=== PATIENT | male | born 1945 | race Caucasian/White ===

== ENCOUNTER 2018-06-04 15:27 | Emergency (ER) | payer MEDICARE, OTHER ==
[~2018-06-04] VITALS: Ht 172.7 cm; Wt 87.0 kg
[2018-06-04 15:30] VITALS: BP 130/77
[2018-06-04] MEDS ORDERED: SULF1TAB49 PO (16:48)
== END 2018-06-04 18:04 | disposition home or self-care (01) ==
LOC: ER 15:27
DX: L02.414 Cutaneous abscess of left upper limb (principal)
CPT/HCPCS: 10060; 99283

== ENCOUNTER 2018-07-01 16:42 | Emergency (ER) | payer MEDICARE, OTHER ==
[~2018-07-01] VITALS: Ht 172.7 cm; Wt 88.0 kg
[2018-07-01 16:45] VITALS: BP 147/92
[2018-07-01] MEDS ORDERED: BUPIVAcaine/PF 2.5 mg/ml (0.25%) 30ml vial IJ ONE (17:05)
[2018-07-01] MEDS ORDERED: TETanus/Pertussis (Acell)/Diphther VAC/PF (Tdap-Adult) 0.5ml syringe IM ONE (17:05)
[2018-07-01] MEDS ORDERED: BUPIVAcaine/PF 2.5mg/ml (0.25%) 10ml vial IJ ONE (17:10)
[2018-07-01] MEDS ORDERED: CEPH500C5 PO (17:36)
== END 2018-07-01 18:37 | disposition home or self-care (01) ==
LOC: ER 16:42
DX: S61.512A Laceration without foreign body of left wrist, initial encounter (principal); Z79.2 Long term (current) use of antibiotics; W26.8XXA Contact with other sharp object(s), not elsewhere classified, initial encounter; Y93.89 Activity, other specified; Y92.89 Other specified places as the place of occurrence of the external cause; Y99.8 Other external cause status
CPT/HCPCS: 12032; 99284; J3490

== ENCOUNTER 2019-10-10 13:10 | Emergency (ER) | payer MEDICARE, OTHER ==
[~2019-10-10] VITALS: Ht 172.7 cm; Wt 86.4 kg
[2019-10-10 17:37] VITALS: BP 137/80
[2019-10-10] MEDS ORDERED: ibuprofen 200mg tablet PO ONE (17:40)
== END 2019-10-10 18:20 | disposition home or self-care (01) ==
LOC: ER 13:11
DX: S80.01XA Contusion of right knee, initial encounter (principal); W23.0XXA Caught, crushed, jammed, or pinched between moving objects, initial encounter; Y93.89 Activity, other specified; Y92.89 Other specified places as the place of occurrence of the external cause; Y99.9 Unspecified external cause status
CPT/HCPCS: 29505; 73564; 73700; 99284

== ENCOUNTER 2021-11-17 10:08 | Emergency (ER) | payer OTHER, MEDICARE ==
[~2021-11-17] VITALS: Ht 172.7 cm; Wt 93.6 kg
[2021-11-17 10:12] VITALS: BP 144/93
[2021-11-17] MEDS ORDERED: ceFAZolin 1000mg inj IV ONE (10:55)
[2021-11-17] MEDS ORDERED: gentamicin in saline, iso-osm 80 MG/50 ML premix IV ONE (10:55)
[2021-11-17] MEDS ORDERED: LIDOcaine 1% W/epiNEPHrine 1:200,000 10ml vial IJ ONE (11:00)
[2021-11-17] MEDS ORDERED: bacitracin 15gm ointment TP ONE (11:00)
[2021-11-17] MEDS ORDERED: LIDOcaine 1% w/EPI 1:100,000 30ml vial (MDV) IJ ONE (11:00)
[2021-11-17] MEDS ORDERED: gentamicin inj 80 MG in normal saline 100ml IV soln 98 ML IV ONE (11:00)
[2021-11-17] MEDS ORDERED: ceFAZolin 2gm in dextrose, iso 100 ML IV ONE (11:00)
[2021-11-17] MEDS ORDERED: ceFAZolin 2gm in dextrose, iso 50 ML IV ONE (11:10)
[2021-11-17] MEDS ORDERED: gentamicin inj 80 MG in normal saline 100ml IV soln 100 ML IV ONE (11:11)
[2021-11-17] MEDS ORDERED: HYDR-3972 PO (12:48)
[2021-11-17] MEDS ORDERED: CEPH-585 PO (12:48)
[2021-11-17] MEDS ORDERED: ONDA4TAB12 PO (12:48)
--- NOTE | 2021-11-17 13:29 | NUR ---
relieving RN for lunch, certified surgical technician at bedside to dress finger on left hand and splint
== END 2021-11-17 13:30 | disposition home or self-care (01) ==
LOC: ER 10:09
DX: S62.635B Displaced fracture of distal phalanx of left ring finger, initial encounter for open fracture (principal); Z79.2 Long term (current) use of antibiotics; Z79.899 Other long term (current) drug therapy; W45.8XXA Other foreign body or object entering through skin, initial encounter; Y93.89 Activity, other specified; Y92.89 Other specified places as the place of occurrence of the external cause; Y99.8 Other external cause status
CPT/HCPCS: 13131; 73140; 96365; 96368; 99285; J0690; J1580; J3490; 96366; 99284

== ENCOUNTER 2021-11-19 08:58 | Emergency (ER) | payer OTHER, MEDICARE ==
[~2021-11-19] VITALS: Ht 172.7 cm; Wt 93.0 kg
[~2021-11-19 08:58] MED LIST: CEPH-585 PO; HYDR-3972 PO; ONDA4TAB12 PO
[2021-11-19 09:36] VITALS: BP 139/82
== END 2021-11-19 09:48 | disposition home or self-care (01) ==
LOC: ER 08:59
DX: S62.605D Fracture of unspecified phalanx of left ring finger, subsequent encounter for fracture with routine healing (principal); Z79.2 Long term (current) use of antibiotics; Z79.899 Other long term (current) drug therapy; X58.XXXD Exposure to other specified factors, subsequent encounter
CPT/HCPCS: 99281

== ENCOUNTER 2021-12-03 15:38 | Emergency (ER) | payer OTHER, MEDICARE ==
[~2021-12-03] VITALS: Ht 172.7 cm; Wt 96.2 kg
[2021-12-03 15:48] VITALS: BP 141/84
--- NOTE | 2021-12-03 16:10 | NUR ---
Finger, (3rd on L hand) soaking in betadine per Leonor, [employer].
--- NOTE | 2021-12-03 17:30 | NUR ---
Wound cleaned by SONIDO Galvez and dressed with tube gauze and splinted with a frog splint.
--- NOTE | 2021-12-03 17:44 | NUR ---
Given and understands d/c instructions. Ambulatory with a steady gait.
== END 2021-12-03 17:44 | disposition home or self-care (01) ==
LOC: ER 15:39
DX: S67.195A Crushing injury of left ring finger, initial encounter (principal); Z79.2 Long term (current) use of antibiotics; Z79.899 Other long term (current) drug therapy; X58.XXXA Exposure to other specified factors, initial encounter; Y93.89 Activity, other specified; Y92.89 Other specified places as the place of occurrence of the external cause; Y99.8 Other external cause status
CPT/HCPCS: 29130; 99281; 99283

== ENCOUNTER 2024-11-25 15:51 | Emergency (ER) | payer OTHER, MEDICARE ==
[~2024-11-25] VITALS: Ht 172.7 cm; Wt 97.8 kg
[~2024-11-25 15:51] MED LIST changes: -CEPH-585 PO; -HYDR-3972 PO; +ONDA-243 PO; -ONDA4TAB12 PO
[2024-11-25 16:40] LABS: BASOPHILS % (AUTO) 0.7 % (0-1); EOSINOPHILS # (AUTO) 0.1 X10'3 (0-0.9); HEMOGLOBIN 14.9 g/dl (14.0-17.9); LYMPHOCYTES % (AUTO) 16.7 % (21-51); MEAN CORPUSCULAR HEMOGLOBIN 29.6 PG (27.0-31.0); MEAN CORPUSCULAR HGB CONC 33.9 g/dL (33.0-36.5); MEAN CORPUSCULAR VOLUME 87.3 FL (78-98); MEAN PLATELET VOLUME 7.6 FL (7.4-10.4); MONOCYTES # (AUTO) 0.5 X10'3 (0-0.9); MONOCYTES % (AUTO) 8.6 % (2-12); NEUTROPHILS # (AUTO) 4.4 X10'3 (1.8-7.7); PLATELET COUNT 233 X10'3 (140-440); RED BLOOD COUNT 5.04 X10'6 (4.70-6.10); RED CELL DISTRIBUTION WIDTH 13.8 % (11.5-14.5)
[2024-11-25 16:53] LABS: ALANINE AMINOTRANSFERASE 29 U/L (12-78); ALBUMIN 4.2 G/DL (3.4-5.0); ALBUMIN/GLOBULIN RATIO 1.2 (1.1-1.5); ALKALINE PHOSPHATASE 73 IU/L (46-116); ANION GAP 13 (8-16); ASPARTATE AMINO TRANSFERASE 25 U/L (10-37); BILIRUBIN,TOTAL 0.5 MG/DL (0.1-1.0); BLOOD UREA NITROGEN 24 MG/DL (7-18); BUN/CREATININE RATIO 16.4 (10.0-20.0); CALCIUM 8.9 MG/DL (8.5-10.1); CHLORIDE 103 MMOL/L (99-107); CREATININE 1.46 MG/DL (0.60-1.10); GLUCOSE 117 MG/DL (70-104); POTASSIUM 4.1 MMOL/L (3.5-5.1); SODIUM 139 MMOL/L (135-145); TOTAL CARBON DIOXIDE 23.1 MMOL/L (24-32); TOTAL PROTEIN 7.6 G/DL (6.4-8.2); eCRCL 41 ML/MIN; eGFR 47 ML/MIN
[2024-11-25 17:03] LABS: PRO BRAIN NATRIURETIC PEPTIDE < 30 PG/ML (0-450)
[2024-11-25 17:28] VITALS: BP 151/88; PULSE 70; TEMP 97.7; O2SAT 95
[2024-11-25 18:04] VITALS: RESP 16
[2024-11-25] MEDS ORDERED: ASPI-1265 PO (18:41)
[2024-11-25] MEDS: aspirin 81mg tab.chew PO ONE (18:57)
== END 2024-11-25 19:02 | disposition home or self-care (01) ==
LOC: ER 15:52
DX: R42 Dizziness and giddiness (principal); Z79.82 Long term (current) use of aspirin
CPT/HCPCS: 36415; 71045; 80053; 83880; 84484; 85025; 93005; 99285